=== PATIENT | male | born 1955 | race Asian ===

== ENCOUNTER 2019-02-07 17:01 | Emergency (ER) | payer SELFPAY ==
[~2019-02-07] VITALS: Ht 170.2 cm; Wt 57.2 kg
[2019-02-07 17:21] VITALS: Ht 170.2 cm; Wt 57.2 kg
[2019-02-07 20:09] VITALS: BP 128/58
== END 2019-02-07 20:09 | disposition home or self-care (01) ==
LOC: ED 17:01
DX: S63.591A Other specified sprain of right wrist, initial encounter (principal); S43.491A Other sprain of right shoulder joint, initial encounter; M54.2 Cervicalgia; W18.39XA Other fall on same level, initial encounter; Y93.89 Activity, other specified; Y92.89 Other specified places as the place of occurrence of the external cause; Y99.8 Other external cause status